=== PATIENT | female | born 1990 | race Caucasian/White ===

== ENCOUNTER 2022-01-28 09:42 | Emergency (ER) | payer SELFPAY ==
[2022-01-28] MEDS ORDERED: Sodium Chloride 0.9% 1,000 ML IV ONE (10:13)
[2022-01-28] MEDS ORDERED: Aspirin 81 MG Tab.Chew PO ONE (10:28)
[2022-01-28 11:07] LABS: BLOOD UREA NITROGEN,BUN 11 mg/dL (7.0-18.0); CARBON DIOXIDE,CO2 26.1 mmol/L (21.0-32.0); CHLORIDE,CL 104 mmol/L (98-107); ESTIMATED GFR 102 mL/min (>60); GLUCOSE RANDOM 92 mg/dL (74-106); SODIUM,NA 140 mmol/L (136-145)
[2022-01-28 12:41] LABS: CORONAVIRUS COVID-19 NAA NEGATIVE (NEGATIVE); INFLUENZA A NAA NEGATIVE (NEGATIVE); INFLUENZA B NAA NEGATIVE (NEGATIVE)
== END 2022-01-28 12:47 | disposition home or self-care (01) ==
LOC: MW.ED 09:42
DX: R07.9 Chest pain, unspecified (principal); J32.9 Chronic sinusitis, unspecified; Z79.899 Other long term (current) drug therapy; Z20.822 Contact with and (suspected) exposure to COVID-19
CPT/HCPCS: 0240U; 36415; 70450; 71045; 80053; 81003; 84484; 85025; 93005; 93971; 96360; 99285; A9270; J7030